=== PATIENT | male | born 1945 | race Caucasian/White ===

== ENCOUNTER 2016-12-14 11:43 | Emergency (ER) | payer MEDICARE ==
[2016-12-14] MEDS ORDERED: IPRATROPIUM-ALBUTEROL 3 ML NEB INHALATION STA (12:03)
[2016-12-14] MEDS ORDERED: SODIUM CHLORIDE 0.9% 1,000 ML IV STA (12:03)
--- NOTE | 2016-12-14 12:14 | ED ---
SOB HPI - General Chief Complaint: Shortness of Breath Stated Complaint: Difficulty Breathing Time Seen by Provider: 12/14/16 11:51 Source: patient, family, RN notes reviewed Mode of arrival: ambulatory Limitations: no limitations - History of Present Illness Initial Comments: This is a 71-year-old male with a history is negative for heart or lung disease though he is a former smoker who quit 14 years ago who presents with complains the onset shortness of breath last night. Patient states he got better he was at rest when it occurred then recurred this morning. He denies any palpitations chest pain fevers chills sweats cough or phlegm production. Also of note however last week when he was cutting grass going up he'll he became very dyspneic while doing acid cervical motion hour to recover. He had no chest pain that time either. At this time he feels slightly short of breath no chest pain no other symptoms reported at this time. MD Complaint: shortness of breath - Related Data Home Medications Medication Instructions Recorded Confirmed Aspirin 162 mg PO DAILY 12/14/16 12/14/16 Previous Rx's Medication Instructions Recorded Albuterol Inhaler [Ventolin Hfa 2 puff INHALATION Q6HR PRN #1 12/14/16 Inhaler] inhaler Allergies Allergy/AdvReac Type Severity Reaction Status Date / Time No Known Allergies Allergy Verified 12/14/16 13:07 Review of Systems ROS Statement: Those systems with pertinent positive or pertinent negative responses have been documented in the HPI. ROS Other: All systems not noted in ROS Statement are negative. Past Medical History Past Medical History: Hyperlipidemia Additional Past Medical History / Comment(s): skin cancer History of Any Multi-Drug Resistant Organisms: None Reported Additional Past Surgical History / Comment(s): skin cancer removal Past Psychological History: No Psychological Hx Reported Smoking Status: Former smoker Past Alcohol Use History: Occasional Past Drug Use History: None Reported General Exam - General Exam Comments Initial Comments: This is a well-developed well-nourished awake alert oriented times 3 male Limitations: no limitations General appearance: alert, in no apparent distress Head exam: Present: atraumatic, normocephalic, normal inspection Eye exam: Present: normal appearance, PERRL, EOMI. Absent: scleral icterus, conjunctival injection, periorbital swelling ENT exam: Present: normal exam, mucous membranes moist Neck exam: Present: normal inspection. Absent: tenderness, meningismus, lymphadenopathy Respiratory exam: Present: decreased breath sounds. Absent: respiratory distress, wheezes, rales, rhonchi, stridor Cardiovascular Exam: Present: regular rate, normal rhythm, normal heart sounds. Absent: systolic murmur, diastolic murmur, rubs, gallop, clicks GI/Abdominal exam: Present: soft, normal bowel sounds. Absent: distended, tenderness, guarding, rebound, rigid Extremities exam: Present: normal inspection, full ROM, normal capillary refill. Absent: tenderness, pedal edema, joint swelling, calf tenderness Back exam: Present: normal inspection Neurological exam: Present: alert, oriented X3, CN II-XII intact Psychiatric exam: Present: normal affect, normal mood Skin exam: Present: warm, dry, intact, normal color. Absent: rash Course Vital Signs 12/14/16 12/14/16 12/14/16 11:45 12:16 12:41 Temperature 98.4 F Pulse Rate 81 80 74 Respiratory 18 20 Rate Blood Pressure 155/79 143/78 O2 Sat by Pulse 94 L 94 L Oximetry 12/14/16 12/14/16 12:50 12:59 Temperature Pulse Rate 75 82 Respiratory 18 Rate Blood Pressure 144/82 O2 Sat by Pulse 93 L Oximetry Medical Decision Making - Medical Decision Making Patient did get improvement with the updraft. I did a long discussion with him and his regarding the findings patient currently is symptom free. Patient will be discharged with a regular as I believe the current presentation is consistent with a bronchospasm. The other symptoms however are suspicious for possible cardiac etiology. Patient apparently does have a stress test scheduled soon he will follow-up outpatient with his doctor to get this performed. The meantime he is to take an aspirin daily inhaler to be used when necessary for shortness of breath as directed and return if is any problems or any issues. Patient has are in agreement with this. Admission was offered the patient would rather go home and do this all patient possible - Lab Data Result diagrams: 12/14/16 12:10 12/14/16 12:10 Lab Results 12/14/16 12/14/16 12/14/16 Range/Units 12:10 12:10 12:10 WBC 8.9 (3.8-10.6) k/uL RBC 6.05 H (4.30-5.90) m/uL Hgb 17.5 (13.0-17.5) gm/dL Hct 50.6 (39.0-53.0) % MCV 83.7 (80.0-100.0) fL MCH 29.0 (25.0-35.0) pg MCHC 34.7 (31.0-37.0) g/dL RDW 13.1 (11.5-15.5) % Plt Count 360 (150-450) k/uL Neutrophils % 67 % Lymphocytes % 22 % Monocytes % 5 % Eosinophils % 2 % Basophils % 1 % Neutrophils # 6.0 (1.3-7.7) k/uL Lymphocytes # 2.0 (1.0-4.8) k/uL Monocytes # 0.5 (0-1.0) k/uL Eosinophils # 0.2 (0-0.7) k/uL Basophils # 0.0 (0-0.2) k/uL PT (9.0-12.0) sec INR (<1.2) APTT (22.0-30.0) sec D-Dimer (<0.60) mg/L FEU Sodium 140 (137-145) mmol/L Potassium 4.3 (3.5-5.1) mmol/L Chloride 106 (98-107) mmol/L Carbon Dioxide 23 (22-30) mmol/L Anion Gap 11 mmol/L BUN 12 (9-20) mg/dL Creatinine 0.67 (0.66-1.25) mg/dL Est GFR (MDRD) Af Amer >60 (>60 ml/min/1.73 sqM) Est GFR (MDRD) Non-Af >60 (>60 ml/min/1.73 sqM) Glucose 92 (74-99) mg/dL Calcium 9.6 (8.4-10.2) mg/dL Magnesium 2.1 (1.6-2.3) mg/dL Total Bilirubin 0.9 (0.2-1.3) mg/dL AST 20 (17-59) U/L ALT 31 (21-72) U/L Alkaline Phosphatase 75 (38-126) U/L Total Creatine Kinase 59 (55-170) U/L CK-MB (CK-2) 1.0 (0.0-2.4) ng/mL CK-MB (CK-2) Rel Index 1.7 Troponin I <0.012 (0.000-0.034) ng/mL NT-Pro-B Natriuret Pep pg/mL Total Protein 7.1 (6.3-8.2) g/dL Albumin 4.4 (3.5-5.0) g/dL 12/14/16 12/14/16 Range/Units 12:10 12:10 WBC (3.8-10.6) k/uL RBC (4.30-5.90) m/uL Hgb (13.0-17.5) gm/dL Hct (39.0-53.0) % MCV (80.0-100.0) fL MCH (25.0-35.0) pg MCHC (31.0-37.0) g/dL RDW (11.5-15.5) % Plt Count (150-450) k/uL Neutrophils % % Lymphocytes % % Monocytes % % Eosinophils % % Basophils % % Neutrophils # (1.3-7.7) k/uL Lymphocytes # (1.0-4.8) k/uL Monocytes # (0-1.0) k/uL Eosinophils # (0-0.7) k/uL Basophils # (0-0.2) k/uL PT 10.9 (9.0-12.0) sec INR 1.1 (<1.2) APTT 26.8 (22.0-30.0) sec D-Dimer 0.33 (<0.60) mg/L FEU Sodium (137-145) mmol/L Potassium (3.5-5.1) mmol/L Chloride (98-107) mmol/L Carbon Dioxide (22-30) mmol/L Anion Gap mmol/L BUN (9-20) mg/dL Creatinine (0.66-1.25) mg/dL Est GFR (MDRD) Af Amer (>60 ml/min/1.73 sqM) Est GFR (MDRD) Non-Af (>60 ml/min/1.73 sqM) Glucose (74-99) mg/dL Calcium (8.4-10.2) mg/dL Magnesium (1.6-2.3) mg/dL Total Bilirubin (0.2-1.3) mg/dL AST (17-59) U/L ALT (21-72) U/L Alkaline Phosphatase (38-126) U/L Total Creatine Kinase (55-170) U/L CK-MB (CK-2) (0.0-2.4) ng/mL CK-MB (CK-2) Rel Index Troponin I (0.000-0.034) ng/mL NT-Pro-B Natriuret Pep 70 pg/mL Total Protein (6.3-8.2) g/dL Albumin (3.5-5.0) g/dL - EKG Data -: EKG Interpreted by Mi EKG shows normal: sinus rhythm, axis, intervals, QRS complexes, ST-T waves ( Sinus rhythm with rate is 72. Interval 146 QRS duration of 90 QT/QTC of 358/ [address]-T wave changes.) - Radiology Data Radiology results: report reviewed (I did review the imaging no acute findings. Chronic changes only), image reviewed Disposition Clinical Impression: Acute bronchospasm Disposition: HOME SELF-CARE Condition: Good Instructions: Bronchospasm (ED) Additional Instructions: Daily aspirin 81 mg Prescriptions: Albuterol Inhaler [Ventolin Hfa Inhaler] 2 puff INHALATION Q6HR PRN #1 inhaler PRN Reason: Dyspnea Referrals: Valdemar Raymond DO [Primary Care Provider] - 1-2 days
[2016-12-14 12:22] LABS: Basophils % (A) 1 %; CH 28.7; CHCM 34.5; Eosinophils # (A) 0.2 k/uL (0-0.7); Eosinophils % (A) 2 %; HCT 50.6 % (39.0-53.0); HDW 2.56; HGB 17.5 gm/dL (13.0-17.5); Luc # (Auto) 0.24; Luc % (Auto) 3; Lymphocytes % (A) 22 %; MCHC 34.7 g/dL (31.0-37.0); MCV 83.7 fL (80.0-100.0); Mean Platelet Volume 7.4; Monocytes # (A) 0.5 k/uL (0-1.0); Monocytes % (A) 5 %; Neutrophils % (A) 67 %; RBC 6.05 m/uL (4.30-5.90); RDW 13.1 % (11.5-15.5); WBC 8.9 k/uL (3.8-10.6); WBC (Perox) 8.74
[2016-12-14 12:33] LABS: ALT 31 U/L (21-72); AST 20 U/L (17-59); Alkaline Phosphatase 75 U/L (38-126); Anion Gap 11 mmol/L; Blood Urea Nitrogen 12 mg/dL (9-20); Calcium 9.6 mg/dL (8.4-10.2); Carbon Dioxide 23 mmol/L (22-30); Chloride 106 mmol/L (98-107); Glucose 92 mg/dL (74-99); Magnesium 2.1 mg/dL (1.6-2.3); Non-African American GFR(MDRD) >60 (>60 ml/min/1.73 sqM); Potassium 4.3 mmol/L (3.5-5.1); Sodium 140 mmol/L (137-145); Total Bilirubin 0.9 mg/dL (0.2-1.3); Total Protein 7.1 g/dL (6.3-8.2)
[2016-12-14 12:35] LABS: INR 1.1 (<1.2); Partial Thromboplastin Time 26.8 sec (22.0-30.0); Prothrombin Time 10.9 sec (9.0-12.0)
--- NOTE | 2016-12-14 12:35 | XR ---
EXAMINATION TYPE: XR chest 2V DATE OF EXAM: 12/14/2016 COMPARISON: NONE HISTORY: Dyspnea for 2 weeks. TECHNIQUE: Frontal and lateral views of the chest are obtained. FINDINGS: There is chronic parenchymal change without suspicious focal air space opacity, pleural ef fusion, or pneumothorax seen. The cardiac silhouette size is within normal limits with atherosclerot ic and slightly ectatic thoracic aorta. Degenerative change bilateral glenohumeral joints is noted. IMPRESSION: Chronic parenchymal changes without acute pulmonary process.
[2016-12-14 12:43] LABS: Creatine Kinase 59 U/L (55-170)
[2016-12-14 12:56] LABS: Troponin I <0.012 ng/mL (0.000-0.034)
[2016-12-14 13:00] VITALS: RESP 18
[2016-12-14 14:29] VITALS: BP 126/75; PULSE 75; TEMP 98.9
== END 2016-12-14 14:31 | disposition home or self-care (01) ==
LOC: EC 11:43
DX: J98.01 Acute bronchospasm (principal); Z87.891 Personal history of nicotine dependence; Z79.82 Long term (current) use of aspirin; Z85.828 Personal history of other malignant neoplasm of skin; Z98.890 Other specified postprocedural states
CPT/HCPCS: 36415; 71020; 80053; 82550; 82553; 83735; 83880; 84484; 85025; 85379; 85610; 85730; 93005; 94640; 96360; 96361; 99285

== ENCOUNTER 2017-06-16 09:08 | Emergency (ER) | payer MEDICARE ==
[2017-06-16] MEDS ORDERED: RX INFO: IV CONTRAST WAS GIVEN 1 EACH MISC MISCELLANE PRN (10:06)
--- NOTE | 2017-06-16 10:31 | ED ---
General Adult HPI - General Chief complaint: Fall Stated complaint: FALL, BACK PAIN Time Seen by Provider: 06/16/17 09:38 Source: patient, family, RN notes reviewed Mode of arrival: wheelchair Limitations: no limitations - History of Present Illness Initial comments: Patient 72-year-old male who presents emergency room today with a chief complaint of a fall that occurred 4 days ago. He does not that he was walking out slipped in the garage going down the steps landing on the step and the right side of his back. He has been to bruising this area and states the pain is worse with certain movements and if he coughs or sneezes. States she's used aspirin at home for the pain with little relief. Denies any complaints or associated symptoms. Patient denies any recent fever, chills, shortness of breath, chest pain, abdominal pain, nausea or vomiting, numbness or tingling, dysuria or hematuria, constipation or diarrhea, headaches or visual changes, or any other complaints. - Related Data Home Medications Medication Instructions Recorded Confirmed Aspirin 162 mg PO DAILY PRN 12/14/16 06/16/17 Ergocalciferol (Vitamin D2) 50,000 unit PO FR 06/16/17 06/16/17 [Vitamin D2] Previous Rx's Medication Instructions Recorded Hydrocodone/Acetaminophen [[place] 1 each PO Q6HR PRN #30 tab 06/16/17 5-325] Ibuprofen [Motrin] 600 mg PO Q6HR PRN #30 day 06/16/17 Allergies Allergy/AdvReac Type Severity Reaction Status Date / Time doxycycline Allergy Dyspnea Verified 06/16/17 10:18 valacyclovir [From Valtrex] Allergy Confusion Verified 06/16/17 10:18 Review of Systems ROS Statement: Those systems with pertinent positive or pertinent negative responses have been documented in the HPI. ROS Other: All systems not noted in ROS Statement are negative. Past Medical History Past Medical History: Hyperlipidemia Additional Past Medical History / Comment(s): skin cancer History of Any Multi-Drug Resistant Organisms: None Reported Additional Past Surgical History / Comment(s): skin cancer removal Past Psychological History: No Psychological Hx Reported Smoking Status: Former smoker Past Alcohol Use History: Occasional Past Drug Use History: None Reported General Exam - General Exam Comments Initial Comments: General: The patient is awake and alert, in no distress, and does not appear acutely ill. Eye: Pupils are equal, round and reactive to light, extra-ocular movements are intact. No nystagmus. There is normal conjunctiva bilaterally. No signs of icterus. Ears, nose, mouth and throat: There are moist mucous membranes and no oral lesions. Neck: The neck is supple, there is no tenderness or JVD. Cardiovascular: There is a regular rate and rhythm. No murmur, rub or gallop is appreciated. Respiratory: Lungs are clear to auscultation, respirations are non-labored, breath sounds are equal. No wheezes, stridor, rales, or rhonchi. Gastrointestinal: Soft, non-distended, non-tender abdomen without masses or organomegaly noted. There is no rebound or guarding present. Bowel sounds are unremarkable. No bruising to the right lower back. Musculoskeletal: Patient does have bruising to the right side of the lower back. No tenderness midline over the spine. Does have some tenderness to the posterior right lower ribs. Strength 5/5. Sensation intact. Pulses equal bilaterally 2+. Neurological: A&O x 3. CN II-XII intact, There are no obvious motor or sensory deficits. Coordination appears grossly intact. Speech is normal. Skin: Skin is warm and dry and no rashes or lesions are noted. Psychiatric: Cooperative, appropriate mood & affect, normal judgment. Limitations: no limitations Course Vital Signs 06/16/17 09:11 Temperature 97.1 F L Pulse Rate 86 Respiratory 18 Rate Blood Pressure 165/90 O2 Sat by Pulse 96 Oximetry Medical Decision Making - Medical Decision Making Patient reexamined at this time shows no signs of distress resting. Positive and reviewed. His CT reviewed and does show evidence of a rib fracture posteriorly to the right 10th and 11th ribs along with right-sided transverse fracture of the lumbar spine of 1, and 2. No other abnormalities. Patient doing well at this time. Given incentive spirometer. Will be given pain medication go home with. Advised follow family doctor. Advised return to emergency room symptoms increase worsen. Patient states understanding and is in agreement. - Lab Data Result diagrams: 06/16/17 10:20 06/16/17 10:20 Lab Results 06/16/17 06/16/17 Range/Units 10:20 10:20 WBC 11.1 H (3.8-10.6) k/uL RBC 6.06 H (4.30-5.90) m/uL Hgb 17.3 (13.0-17.5) gm/dL Hct 53.1 H (39.0-53.0) % MCV 87.6 (80.0-100.0) fL MCH 28.5 (25.0-35.0) pg MCHC 32.5 (31.0-37.0) g/dL RDW 14.8 (11.5-15.5) % Plt Count 387 (150-450) k/uL Neutrophils % 83 % Lymphocytes % 11 % Monocytes % 4 % Eosinophils % 1 % Basophils % 1 % Neutrophils # 9.1 H (1.3-7.7) k/uL Lymphocytes # 1.2 (1.0-4.8) k/uL Monocytes # 0.4 (0-1.0) k/uL Eosinophils # 0.1 (0-0.7) k/uL Basophils # 0.1 (0-0.2) k/uL Sodium 141 (137-145) mmol/L Potassium 5.0 (3.5-5.1) mmol/L Chloride 104 (98-107) mmol/L Carbon Dioxide 26 (22-30) mmol/L Anion Gap 11 mmol/L BUN 15 (9-20) mg/dL Creatinine 0.65 L (0.66-1.25) mg/dL Est GFR (MDRD) Af Amer >60 (>60 ml/min/1.73 sqM) Est GFR (MDRD) Non-Af >60 (>60 ml/min/1.73 sqM) Glucose 104 H (74-99) mg/dL Calcium 9.9 (8.4-10.2) mg/dL Total Bilirubin 0.8 (0.2-1.3) mg/dL AST 24 (17-59) U/L ALT 28 (21-72) U/L Alkaline Phosphatase 76 (38-126) U/L Total Protein 7.2 (6.3-8.2) g/dL Albumin 4.3 (3.5-5.0) g/dL Disposition Clinical Impression: Multiple rib fractures, Lumbar transverse process fracture Disposition: HOME SELF-CARE Condition: Good Instructions: Rib Fracture (ED) Additional Instructions: Please use medication as discussed. Please follow-up with family doctor in the next 2 days Please return to emergency room if the symptoms increase or worsen or for any other concerns. Prescriptions: Hydrocodone/Acetaminophen [[place] 5-325] 1 each PO Q6HR PRN #30 tab PRN Reason: Pain Ibuprofen [Motrin] 600 mg PO Q6HR PRN #30 day PRN Reason: Pain Referrals: Valdemar Raymond DO [Primary Care Provider] - 1-2 days Time of Disposition: 12:38
[2017-06-16 10:45] LABS: ALT 28 U/L (21-72); AST 24 U/L (17-59); Albumin 4.3 g/dL (3.5-5.0); Alkaline Phosphatase 76 U/L (38-126); Anion Gap 11 mmol/L; Basophils # (A) 0.1 k/uL (0-0.2); Basophils % (A) 1 %; Blood Urea Nitrogen 15 mg/dL (9-20); Calcium 9.9 mg/dL (8.4-10.2); Carbon Dioxide 26 mmol/L (22-30); Chloride 104 mmol/L (98-107); Eosinophils # (A) 0.1 k/uL (0-0.7); Eosinophils % (A) 1 %; Glucose 104 mg/dL (74-99); HCT 53.1 % (39.0-53.0); HGB 17.3 gm/dL (13.0-17.5); Lymphocytes # (A) 1.2 k/uL (1.0-4.8); Lymphocytes % (A) 11 %; MCH 28.5 pg (25.0-35.0); MCHC 32.5 g/dL (31.0-37.0); MCV 87.6 fL (80.0-100.0); Mean Platelet Volume 7.8; Monocytes # (A) 0.4 k/uL (0-1.0); Monocytes % (A) 4 %; Neutrophils # (A) 9.1 k/uL (1.3-7.7); Neutrophils % (A) 83 %; Platelet Count 387 k/uL (150-450); RBC 6.06 m/uL (4.30-5.90); RDW 14.8 % (11.5-15.5); Sodium 141 mmol/L (137-145); Total Bilirubin 0.8 mg/dL (0.2-1.3); Total Protein 7.2 g/dL (6.3-8.2); WBC 11.1 k/uL (3.8-10.6)
[2017-06-16] MEDS ORDERED: SODIUM CHLORIDE 0.9% 1,000 ML IV STA (11:15)
--- NOTE | 2017-06-16 11:58 | CT ---
EXAMINATION TYPE: CT abdomen pelvis w con DATE OF EXAM: 06/16/2017 COMPARISON: Chest x-ray 12/14/2016 HISTORY: Patient complains of increasing RUQ pain post fall [address] DLP: 614.6 mGycm CONTRAST: CT scan of the abdomen and pelvis is performed without Oral Contrast and with IV Contrast, patient in jected with 100 mL of Omnipaque 300. FINDINGS: LUNG BASES-: No visible nodule. No infiltrate. Mild basilar fibrotic change. LIVER/GB: No calcified gallstones. No space occupying hepatic lesion. Biliary tree is of normal ca liber. No evidence for hepatic laceration. PANCREAS: No inflammation. No distinct mass. SPLEEN: No splenic enlargement. No lesion seen. ADRENALS: No nodule. No thickening. KIDNEYS/BLADDER: No hydronephrosis. No nephrolithiasis. No disctinct renal mass. Urinary bladder g rossly unremarkable. No renal laceration seen. BOWEL: Normal appendix. Normal bowel caliber. No inflammation. Small hiatal hernia noted. GENITAL ORGANS: No gross abnormality. LYMPH NODES: No greater than 1cm abdominal or pelvic lymph nodes are appreciated. AORTA: No significant abnormality. OSSEOUS STRUCTURES: Fractures of posterior right ribs 10 and 11. Fracture of the right L1 and L3 dawson sverse process. No additional acute fractures are seen with certainty at this time. Loss of height in volving T12 is likely chronic in nature as appeared to have been present on prior lateral chest radio graph. OTHER: No significant additional abnormality is seen. IMPRESSION: 1. No CT evidence to suggest traumatic solid or hollow visceral injury. No evidence for pneumoperiton eum. 2. Posterior right rib fractures of the ribs 10 and 11. There is also fracture of right transverse pr ocess of L1 and L3
[2017-06-16] MEDS ORDERED: HYDROcodone/APAP 5-325MG 1 EACH TAB PO STA (12:37)
[2017-06-16 12:48] VITALS: BP 144/80; PULSE 85; RESP 16; TEMP 98.4
== END 2017-06-16 12:53 | disposition home or self-care (01) ==
LOC: EC 09:08
DX: S22.41XA Multiple fractures of ribs, right side, initial encounter for closed fracture (principal); S32.019A Unspecified fracture of first lumbar vertebra, initial encounter for closed fracture; S32.029A Unspecified fracture of second lumbar vertebra, initial encounter for closed fracture; Z85.828 Personal history of other malignant neoplasm of skin; Z87.891 Personal history of nicotine dependence; Z88.1 Allergy status to other antibiotic agents; Z79.899 Other long term (current) drug therapy; W10.9XXA Fall (on) (from) unspecified stairs and steps, initial encounter; Y93.01 Activity, walking, marching and hiking; Y92.59 Other trade areas as the place of occurrence of the external cause
CPT/HCPCS: 36415; 80053; 85025; 74177; 99284; 96360; Q9967

== ENCOUNTER → 2018-03-26 | Outpatient (CLI) | payer OTHER ==
[2018-03-26 16:15] LABS: Blood Urea Nitrogen 18 mg/dL (9-20)
--- NOTE | 2018-03-27 12:36 | CT ---
EXAMINATION TYPE: CT chest w con DATE OF EXAM: 03/26/2018 COMPARISON: CT abdomen pelvis 06/16/2017, chest x-ray 12/14/2016 HISTORY: LUNG NODULE FOUND ON XRAY CT DLP: 346.5 mGycm, Automated exposure control for dose reduction was used. CONTRAST: Performed injected with 100 mL of Isovue 300. TECHNIQUE: Axial images were obtained at 5 mm thick sections. Reconstructed images are reviewed on [employer] computer in the coronal plane. FINDINGS: Portion of the thyroid visualized is normal. No suspicious lung nodules or focal infiltrates are present. Emphysematous changes are present. Some mild compressive atelectasis of the right lung may be present. Some subtle streak opacity or pneumoni tis changes in the right middle lobe. There are couple of calcified densities within the posterior la teral right lung. There is a 0.9 cm area of peripheral increased density in the right lower lobe. Series 4 image 39. Fo llow-up is recommended. No enlarged mediastinal or hilar adenopathy is evident. Shotty lymphadenopathy is present. The asce nding aorta diameter at the level of the main pulmonary artery is 3.8 cm. The main pulmonary artery diameter at the bifurcation is 2.2 cm. Small hiatal hernia is present. Limited CT sections are obtained through the upper abdomen. Abdomen is essentially unremarkable. IMPRESSIONS: 1. Emphysematous changes. 2. Mild pneumonitis or faint opacities within the right middle and lower lobes discussed above. Nodul ar density is not excluded in the periphery right lower lobe discussed above. Follow-up CT chest in 6 months is recommended. 3. Small hiatal hernia
== END | disposition home or self-care (01) ==
LOC: RADCTMAIN 15:22
PROVIDERS: ATTEND Nurse Practitioner Acute Care
DX: J43.9 Emphysema, unspecified (principal); R91.1 Solitary pulmonary nodule
CPT/HCPCS: 82565; 84520; 71260; 36415; Q9967

== ENCOUNTER → 2018-12-11 | Outpatient (CLI) | payer OTHER ==
[2018-12-11 14:47] LABS: African American GFR (CKD) >90 (>60 ml/min/1.73 sqM); Blood Urea Nitrogen 17 mg/dL (9-20)
--- NOTE | 2018-12-11 15:16 | CT ---
EXAMINATION TYPE: CT chest w con DATE OF EXAM: 12/11/2018 COMPARISON: Chest CT March 26, 2018 HISTORY: Solitary Pulmonary Nodule CT DLP: 564 mGycm. Automated Exposure Control for Dose Reduction was Utilized. TECHNIQUE: CT scan of the thorax is performed following with IV Contrast, patient injected with 100m l mL of Isovue 300. FINDINGS: LUNGS: Moderate underlying emphysematous change is redemonstrated. There are scattered parenchymal fi brosis and peripheral reticulation particularly in the right lower lobe with stable 7 mm subpleural s carlike opacity lateral right lower lobectomies 39 favoring postinflammatory scar. No new greater trini n 5 mm parenchymal nodules or masses. Dependent atelectasis bilateral lower lobes. No pleural effusio n or pneumothorax. MEDIASTINUM: There are no greater than 1 cm hilar or mediastinal lymph nodes. No cardiomegaly or pe ricardial effusion is seen. Ascending aorta measures 3.6 cm in diameter at bifurcation axial image 28 . OTHER: Stable small hiatal hernia. Slight scoliotic curvature. Prominent Schmorl node superior T12 en dplate. IMPRESSION: Emphysematous changes with chronic fibrosis. No new or enlarging nodularity.
== END | disposition home or self-care (01) ==
LOC: RADCTMAIN 14:15
DX: J43.9 Emphysema, unspecified (principal); J84.10 Pulmonary fibrosis, unspecified; Z88.1 Allergy status to other antibiotic agents; Z88.8 Allergy status to other drugs, medicaments and biological substances
CPT/HCPCS: 36415; 71260; 82565; 84520

== ENCOUNTER → 2020-05-01 | Outpatient (CLI) | payer MEDICARE ==
--- NOTE | 2020-05-01 11:10 | XR ---
EXAMINATION TYPE: XR foot complete RT DATE OF EXAM: 05/01/2020 COMPARISON: NONE HISTORY: Pain fifth metatarsal TECHNIQUE: Three views are submitted. FINDINGS: The osseous structures are intact. There is no acute fracture or dislocation. Arthropathy of all D IP joints and PIP joints. Arthropathy first MTP joint. IMPRESSION: 1. No acute fracture or dislocation. If symptoms persist, follow-up exam in 7 to 10 days could be ob tained. 2. Arthropathy.
== END | disposition home or self-care (01) ==
LOC: RADXRMAIN 10:40
PROVIDERS: ATTEND Podiatrist Foot Surgery
DX: M12.9 Arthropathy, unspecified (principal)

== ENCOUNTER 2020-06-13 07:38 | Day surgery (SDC) | payer MEDICARE ==
[2020-06-08 09:10] VITALS: BMI 25.8
[~2020-06-13 07:38] MED LIST: LACTATED RINGERS 1,000 ML IV SCH; LIDOCAINE 1% (10MG/ML) FOR IV START INTRADERMA PRN
[2020-06-13 08:17] VITALS: TEMP 97.7
[2020-06-13] MEDS ORDERED: PROPOFOL 10 MG/ML 20 ML VIAL IV ONE (08:52)
--- NOTE | 2020-06-13 09:30 | P.PCN ---
Date of Procedure: 06/13/20 Description of Procedure: BRIEF HISTORY: Patient is a 75-year-old male presenting for outpatient colonoscopy for history of colon polyps. He reports last colonoscopy 5 years ago with polypectomy. This report a family history of colon cancer in his half-brother. Denies any change in bowel movements or blood per rectum. PROCEDURE PERFORMED: Colonoscopy with polypectomy. PREOPERATIVE DIAGNOSIS: History of colon polyps, family history of colon cancer in the patient's half-brother, last colonoscopy 5 years. ESTIMATED BLOOD LOSS: Minimal. IV sedation per Anesthesia. PROCEDURE: After informed consent was obtained, the patient, was brought into the endoscopy unit. IV sedation was administered by Anesthesia under continuous monitoring. Digital rectal examination was normal. Initially the Olympus CF-190 flexible video colonoscope was then inserted in the rectum, gradually advanced into the cecum without any difficulty. Careful examination was performed as the scope was gradually being withdrawn. Ileocecal valve and the appendiceal orifice were visualized and appeared normal. Prep was excellent. Mucosa of the cecum, ascending colon, transverse colon, descending colon, sigmoid colon, and rectum appeared normal. 2 diminutive polyps measuring 1-2 mm in size removed from cecum and ascending colon with cold forcep polypectomy. Flat colon polyps measuring 6 mm in the ascending colon and 5 mm at the hepatic flexure removed with cold snare polypectomy. Multiple small mouth diverticula noted in the left colon. Retroflexion was performed in the rectum and no lesions were seen, low- grade internal hemorrhoids seen. The patient tolerated the procedure well. IMPRESSION: 2 medium sized polyp removed with cold snare polypectomy from the ascending colon and hepatic flexure. 2 diminutive polyps removed with cold forcep polypectomy from the cecum and ascending colon. Moderate left colonic diverticulosis. RECOMMENDATIONS: Findings of this examination were discussed with the patient and his family. Okay to resume diet, recommend high-fiber. Okay to resume medications. Await pathology from polypectomies. Recommend repeat colonoscopy in 5 years for history of colon polyps pending pathology from polypectomies, if patient is medically stable at that time.
[2020-06-13 09:35] VITALS: RESP 16
[2020-06-13 09:49] VITALS: BP 120/72; PULSE 89
== END 2020-06-13 10:12 | disposition home or self-care (01) ==
LOC: ORWHC2ENDO 07:38
PROVIDERS: ATTEND Internal Medicine
DX: Z12.11 Encounter for screening for malignant neoplasm of colon (principal); D12.2 Benign neoplasm of ascending colon; D12.0 Benign neoplasm of cecum; D12.3 Benign neoplasm of transverse colon; K57.30 Diverticulosis of large intestine without perforation or abscess without bleeding; E78.5 Hyperlipidemia, unspecified; Z86.010 Personal history of colon polyps; Z80.0 Family history of malignant neoplasm of digestive organs; Z98.890 Other specified postprocedural states; Z87.891 Personal history of nicotine dependence; Z88.1 Allergy status to other antibiotic agents; Z88.8 Allergy status to other drugs, medicaments and biological substances
CPT/HCPCS: 88305; 45380; 45385; J2704

== ENCOUNTER 2021-04-23 06:09 | Day surgery (SDC) | payer BC, MEDICARE, OTHER ==
[2021-04-19 14:39] VITALS: BMI 26.5
[2021-04-23] MEDS ORDERED: LACTATED RINGERS 1,000 ML IV ONE (06:43)
[2021-04-23 06:44] VITALS: RESP 16; TEMP 96.9
[2021-04-23] MEDS ORDERED: PROPOFOL 10 MG/ML 20 ML VIAL IV ONE (07:14)
[2021-04-23 07:50] LABS: Basophils # (A) 0.1 k/uL (0-0.2); Basophils % (A) 1 %; Eosinophils # (A) 0.3 k/uL (0-0.7); Eosinophils % (A) 2 %; HCT 47.5 % (39.0-53.0); HGB 16.3 gm/dL (13.0-17.5); Lymphocytes # (A) 2.1 k/uL (1.0-4.8); Lymphocytes % (A) 19 %; MCH 28.6 pg (25.0-35.0); MCHC 34.2 g/dL (31.0-37.0); MCV 83.5 fL (80.0-100.0); Mean Platelet Volume 7.7; Monocytes # (A) 0.7 k/uL (0-1.0); Monocytes % (A) 6 %; Neutrophils # (A) 7.9 k/uL (1.3-7.7); Neutrophils % (A) 70 %; Platelet Count 533 k/uL (150-450); RBC 5.69 m/uL (4.30-5.90); RDW 14.2 % (11.5-15.5); Reticulocyte % 2.5 % (0.5-2.0); WBC 11.3 k/uL (3.8-10.6)
[2021-04-23 07:55] VITALS: BP 131/75; PULSE 79
--- NOTE | 2021-04-23 08:31 | PCN ---
PROCEDURE NOTE DATE OF SERVICE: 04/23/2021 PROCEDURE: Bone marrow aspirate and biopsy. INDICATION: Polycythemia vera. After obtaining consent from the patient, the procedure was performed in the endoscopy suite under general anesthesia performed by the anesthesia team. PROCEDURE DESCRIPTION: The patient was put on the left lateral decubitus position. The right posterior superior iliac crest was localized. Skin was prepped with ChloraPrep. All sterile procedures were followed. Two mL of 2% lidocaine was used for local anesthetic. Monoject needle was inserted and 15 mL of aspirate and 2 cm core biopsy was obtained without any difficulties. Pressure was applied afterwards. There was negligible blood loss. The patient tolerated the procedure very well without any immediate complications. MMODL / IJN: [id number] /
== END 2021-04-23 08:22 | disposition home or self-care (01) ==
LOC: OR 06:09
PROVIDERS: ATTEND Internal Medicine Hematology & Oncology
DX: C96.9 Malignant neoplasm of lymphoid, hematopoietic and related tissue, unspecified (principal); D47.3 Essential (hemorrhagic) thrombocythemia; D75.1 Secondary polycythemia; E78.5 Hyperlipidemia, unspecified; Z88.8 Allergy status to other drugs, medicaments and biological substances; Z79.82 Long term (current) use of aspirin; Z80.0 Family history of malignant neoplasm of digestive organs; Z80.8 Family history of malignant neoplasm of other organs or systems; Z87.891 Personal history of nicotine dependence
CPT/HCPCS: 85025; 85045; 38222; J2704

== ENCOUNTER 2024-07-19 12:20 | Emergency (ER) | payer MEDICARE, OTHER ==
[2024-07-19 12:39] VITALS: RESP 20
--- NOTE | 2024-07-19 12:59 | ED ---
General Adult HPI - General Chief complaint: Shortness of Breath Stated complaint: Flu symptoms,headache Time Seen by Provider: 07/19/24 12:59 Source: patient Mode of arrival: ambulatory Limitations: no limitations - History of Present Illness Initial comments: 79-year-old male presenting chief complaint of shortness of breath. Patient is also complaining of headache. He was diagnosed with the flu 2 weeks ago and states he is having these persistent symptoms. States that he feels like he needs to cough something up and he feels something in his chest but his cough is mostly dry. No known fever. No chest pain. No nausea vomiting or abdominal pain. No lower extremity swelling. No dizziness or weakness. - Related Data Home Medications Medication Instructions Recorded Confirmed Aspirin 325 mg PO DAILY 04/19/21 04/19/21 Cholecalciferol [Vitamin D3 (10 10 mcg PO DAILY 04/19/21 04/19/21 Mcg = 400 Iu)] Previous Rx's Medication Instructions Recorded Albuterol Sulfate [Albuterol 1 puff PO Q4-6H PRN #8.5 gm 07/19/24 Sulfate Hfa] Amoxic-Pot Clav 875-125Mg 1 tab PO Q12HR 7 Days #14 tab 07/19/24 [Augmentin 875-125] Azithromycin [Zithromax] 250 mg PO DAILY 4 Days #4 tab 07/19/24 Allergies Allergy/AdvReac Type Severity Reaction Status Date / Time doxycycline Allergy Dyspnea Verified 07/19/24 12:39 valacyclovir [From Valtrex] Allergy Confusion Verified 07/19/24 12:39 Review of Systems ROS Statement: Those systems with pertinent positive or pertinent negative responses have been documented in the HPI. ROS Other: All systems not noted in ROS Statement are negative. Past Medical History Past Medical History: Cancer, Hyperlipidemia Additional Past Medical History / Comment(s): skin cancer, states too many red blood cells. History of Any Multi-Drug Resistant Organisms: None Reported Past Surgical History: No Surgical Hx Reported Additional Past Surgical History / Comment(s): COLONOSCOPY Past Anesthesia/Blood Transfusion Reactions: No Reported Reaction Past Psychological History: No Psychological Hx Reported Smoking Status: Former smoker Past Alcohol Use History: Occasional Past Drug Use History: None Reported - Past Family History Mother Family Medical History: Cancer Additional Family Medical History / Comment(s): BRAIN CANCER Brother(s) Family Medical History: Cancer Additional Family Medical History / Comment(s): COLON CANCER Sister(s) Family Medical History: Cancer Additional Family Medical History / Comment(s): LIVER CANCER General Exam - General Exam Comments Initial Comments: Visual Physical Exam Vital signs reviewed General: Well-appearing, nontoxic, no acute distress. Head: Normocephalic, atraumatic Eyes: PERRLA, EOMI ENT: Airway patent Chest: Nonlabored breathing Skin: No visual rash, normal skin tone Neuro: Alert and oriented 3 Musculoskeletal: No gross abnormalities Limitations: no limitations General appearance: alert, in no apparent distress Head exam: Present: atraumatic, normocephalic, normal inspection Eye exam: Present: normal appearance, EOMI Neck exam: Present: normal inspection. Absent: meningismus Respiratory exam: Present: normal lung sounds bilaterally. Absent: respiratory distress, wheezes, rales, rhonchi, stridor Cardiovascular Exam: Present: regular rate, normal rhythm, normal heart sounds. Absent: systolic murmur, diastolic murmur, rubs, gallop, clicks Neurological exam: Present: alert, oriented X3 Psychiatric exam: Present: normal affect, normal mood Skin exam: Present: warm, dry, normal color Course Vital Signs 07/19/24 07/19/24 07/19/24 12:36 16:09 18:39 Temperature 97.5 F L 98.4 F 98.1 F Pulse Rate 106 H 68 90 Respiratory 20 20 20 Rate Blood Pressure 153/88 130/80 114/73 O2 Sat by Pulse 94 L 95 95 Oximetry Medical Decision Making - Medical Decision Making I performed the quick note portion of this visit, electronically signed Pedrito Hughes PA-C Was pt. sent in by a medical professional or institution (RAMA Blackman, BUSINESS ADVISOR, urgent care, hospital, or usp...) When possible be specific @ -No Did you speak to anyone other than the patient for history (EMS, parent, family, police, friend...)? What history was obtained from this source @ -No Did you review nursing and triage notes (agree or disagree)? Why? @ -I reviewed and agree with nursing and triage notes Were old charts reviewed (outside hosp., previous admission, EMS record, old EKG, old radiological studies, urgent care reports/EKG's, usp records)? Report findings @ -No old charts were reviewed Differential Diagnosis (chest pain, altered mental status, abdominal pain women, abdominal pain men, vaginal bleeding, weakness, fever, dyspnea, syncope, headache, dizziness, GI bleed, back pain, seizure, CVA, palpatations, mental health, musculoskeletal)? @ -MDM Differential Dyspnea: Coronary syndrome, arrhythmia, tamponade, asthma, COPD, pulmonary embolism, pneu monia, pneumothorax, pulmonary effusion, anaphylaxis, diabetic ketoacidosis, flailed chest, pulmonary contusion, diaphragmatic rupture, anemia, neuromuscular this is not meant to be an all-inclusive list. EKG interpreted by me (3pts min.). @ -EKG shows sinus rhythm ventricular rate 91. NC interval 141. QRS 116. QT 350. QTc 398. X-rays interpreted by me (1pt min.). @ -Chest x-ray shows right lower lobe infiltrate. Correlate for pneumonia. CT interpreted by me (1pt min.). @ -None done U/S interpreted by me (1pt. min.). @ -None done What testing was considered but not performed or refused? (CT, X-rays, U/S, labs)? Why? @ -None What meds were considered but not given or refused? Why? @ -None Did you discuss the management of the patient with other professionals (professionals i.e. , PA, BUSINESS ADVISOR, lab, RT, psych nurse, social worker assistant, development analyst, teacher, police officer crime prevention, case managers)? Give summary @ -No Was smoking cessation discussed for >3mins.? @ -No Was critical care preformed (if so, how long)? @ -No Were there social determinants of health that impacted care today? How? (Homelessness, low income, unemployed, alcoholism, drug addiction, transportation, low edu. Level, literacy, decrease access to med. care, fpc, rehab)? @ -No Was there de-escalation of care discussed even if they declined (Discuss DNR or withdrawal of care, Hospice)? DNR status @ -No What co-morbidities impacted this encounter? (DM, HTN, Smoking, COPD, CAD, Cancer, CVA, ARF, Chemo, Hep., AIDS, mental health diagnosis, sleep apnea, morbid obesity)? @ -None Was patient admitted / discharged? Hospital course, mention meds given and route, prescriptions, significant lab abnormalities, going to OR and other pertinent info. @ -79-year-old male presenting chief complaint of shortness of breath. History and physical examination are conducted. Lab work shows no leukocytosis or anemia. Negative troponin. BNP is 55. He is negative for influenza, RSV, COVID. Chest x-ray is positive for right lower lobe pneumonia. Patient is treated with a DuoNeb as well as IV azithromycin and ceftriaxone. Vital signs are stable. Patient wishes to be discharged home. States that he is feeling well. I explained to the patient that we can admit him for treatment of the pneumonia, he would prefer to go home. He is prescribed the remainder of his course of azithromycin and Augmentin for home as well as provided with an albuterol inhaler. Provided with strict return parameters. Follow-up with PCP. Report back to ER with any new or worsening symptoms. Discussed return parameters and answered all questions. Patient conveyed verbal understanding and agreed to the plan. I discussed this case in detail with my attending Dr. Collazo Undiagnosed new problem with uncertain prognosis? @ -No Drug Therapy requiring intensive monitoring for toxicity (Heparin, Nitro, Insulin, Cardizem)? @ -No Were any procedures done? @ -No Diagnosis/symptom? @ -Pneumonia Acute, or Chronic, or Acute on Chronic? @ -Acute Uncomplicated (without systemic symptoms) or Complicated (systemic symptoms)? @ -Uncomplicated Side effects of treatment? @ -No Exacerbation, Progression, or Severe Exacerbation? @ -No Poses a threat to life or bodily function? How? (Chest pain, [place], [place], pneumonia, PE, COPD, DKA, ARF, appy, cholecystitis, CVA, Diverticulitis, Homicidal, Suicidal, threat to staff... and all critical care pts) @ -Potential with any infection - Lab Data Result diagrams: 07/19/24 13:27 07/19/24 14:19 Lab Results 07/19/24 07/19/24 07/19/24 Range/Units 13:27 13: 13: WBC 4.6 (3.8-10.6) k/uL RBC 3.77 L (4.30-5.90) m/uL Hgb 13.3 (13.0-17.5) gm/dL Hct 40.2 (39.0-53.0) % MCV 106.7 H (80.0-100.0) fL MCH 35.2 H (25.0-35.0) pg MCHC 33.0 (31.0-37.0) g/dL RDW 13.9 (11.5-15.5) % Plt Count 630 H (150-450) k/uL MPV 7.6 Neutrophils % 59 % Lymphocytes % 29 % Monocytes % 7 % Eosinophils % 1 % Basophils % 0 % Neutrophils # 2.7 (1.3-7.7) k/uL Lymphocytes # 1.3 (1.0-4.8) k/uL Monocytes # 0.3 (0-1.0) k/uL Eosinophils # 0.1 (0-0.7) k/uL Basophils # 0.0 (0-0.2) k/uL Macrocytosis Moderate PT 11.5 (10.0-12.5) sec INR 1.0 (<1.2) APTT 26.9 (22.0-30.0) sec Sodium (137-145) mmol/L Potassium (3.5-5.1) mmol/L Chloride (98-107) mmol/L Carbon Dioxide (22-30) mmol/L Anion Gap mmol/L BUN (9-20) mg/dL Creatinine (0.66-1.25) mg/dL Est GFR (CKD-EPI)AfAm (>60 ml/min/1.73 sqM) Est GFR (CKD-EPI)NonAf (>60 ml/min/1.73 sqM) Glucose (74-99) mg/dL Calcium (8.4-10.2) mg/dL Magnesium (1.6-2.3) mg/dL Total Bilirubin (0.2-1.3) mg/dL AST (17-59) U/L ALT (4-49) U/L Alkaline Phosphatase (38-126) U/L Troponin I (0.000-0.034) ng/mL NT-Pro-B Natriuret Pep pg/mL Total Protein (6.3-8.2) g/dL Albumin (3.5-5.0) g/dL Influenza Type A (PCR) Not Detected (Not Detectd) Influenza Type B (PCR) Not Detected (Not Detectd) RSV (PCR) Not Detected (Not Detectd) SARS-CoV-2 (PCR) Not Detected (Not Detectd) 07/19/24 07/19/24 07/19/24 Range/Units 14:19 14:19 14:19 WBC (3.8-10.6) k/uL RBC (4.30-5.90) m/uL Hgb (13.0-17.5) gm/dL Hct (39.0-53.0) % MCV (80.0-100.0) fL MCH (25.0-35.0) pg MCHC (31.0-37.0) g/dL RDW (11.5-15.5) % Plt Count (150-450) k/uL MPV Neutrophils % % Lymphocytes % % Monocytes % % Eosinophils % % Basophils % % Neutrophils # (1.3-7.7) k/uL Lymphocytes # (1.0-4.8) k/uL Monocytes # (0-1.0) k/uL Eosinophils # (0-0.7) k/uL Basophils # (0-0.2) k/uL Macrocytosis PT (10.0-12.5) sec INR (<1.2) APTT (22.0-30.0) sec Sodium 138 (137-145) mmol/L Potassium 4.8 (3.5-5.1) mmol/L Chloride 103 (98-107) mmol/L Carbon Dioxide 26 (22-30) mmol/L Anion Gap 9 mmol/L BUN 16 (9-20) mg/dL Creatinine 0.74 (0.66-1.25) mg/dL Est GFR (CKD-EPI)AfAm >90 (>60 ml/min/1.73 sqM) Est GFR (CKD-EPI)NonAf 87 (>60 ml/min/1.73 sqM) Glucose 108 H (74-99) mg/dL Calcium 9.4 (8.4-10.2) mg/dL Magnesium 2.4 H (1.6-2.3) mg/dL Total Bilirubin 1.0 (0.2-1.3) mg/dL AST 19 (17-59) U/L ALT 31 (4-49) U/L Alkaline Phosphatase 74 (38-126) U/L Troponin I <0.012 (0.000-0.034) ng/mL NT-Pro-B Natriuret Pep 55 pg/mL Total Protein 6.9 (6.3-8.2) g/dL Albumin 3.6 (3.5-5.0) g/dL Influenza Type A (PCR) (Not Detectd) Influenza Type B (PCR) (Not Detectd) RSV (PCR) (Not Detectd) SARS-CoV-2 (PCR) (Not Detectd) Disposition Clinical Impression: Pneumonia Disposition: HOME SELF-CARE Condition: Good Instructions (If sedation given, give patient instructions): Community Acquired Pneumonia (ED) Additional Instructions: Follow-up with PCP. Report back to ER with any new or worsening symptoms Prescriptions: Albuterol Sulfate [Albuterol Sulfate Hfa] 1 puff PO Q4-6H PRN #8.5 gm PRN Reason: Shortness Of Breath Amoxic-Pot Clav 875-125Mg [Augmentin 875-125] 1 tab PO Q12HR 7 Days #14 tab Azithromycin [Zithromax] 250 mg PO DAILY 4 Days #4 tab Is patient prescribed a controlled substance at d/c from ED?: No Referrals: Akshat Denson DO [Primary Care Provider] - 1-2 days Time of Disposition: 16:31
--- NOTE | 2024-07-19 13:42 | XR ---
EXAMINATION TYPE: XR chest 2V DATE OF EXAM: 07/19/2024 1:38 PM COMPARISON: 12/14/2016 CLINICAL INDICATION: Male, 79 years old with history of LES, TECHNIQUE: XR chest 2V view(s) obtained. FINDINGS: The heart size is normal. The pulmonary vasculature is normal. Right lower lobe infiltrate is present. Correlate for pneumonia. Follow-up is recommended. IMPRESSION: 1. Right lower lobe infiltrate. Correlate for pneumonia [facility], , 07/19/2024 1:40 PM
[2024-07-19 13:44] LABS: Basophils % (A) 0 %; Eosinophils # (A) 0.1 k/uL (0-0.7); Eosinophils % (A) 1 %; HCT 40.2 % (39.0-53.0); HGB 13.3 gm/dL (13.0-17.5); Lymphocytes # (A) 1.3 k/uL (1.0-4.8); Lymphocytes % (A) 29 %; MCH 35.2 pg (25.0-35.0); MCV 106.7 fL (80.0-100.0); Macrocytosis Moderate; Mean Platelet Volume 7.6; Monocytes # (A) 0.3 k/uL (0-1.0); Monocytes % (A) 7 %; Neutrophils # (A) 2.7 k/uL (1.3-7.7); Neutrophils % (A) 59 %; Platelet Count 630 k/uL (150-450); RBC 3.77 m/uL (4.30-5.90); RDW 13.9 % (11.5-15.5); WBC 4.6 k/uL (3.8-10.6)
[2024-07-19 14:17] LABS: Influenza A Not Detected (Not Detectd); Influenza B Not Detected (Not Detectd); RSV Not Detected (Not Detectd)
[2024-07-19 14:37] LABS: Partial Thromboplastin Time 26.9 sec (22.0-30.0); Prothrombin Time 11.5 sec (10.0-12.5)
[2024-07-19] MEDS: IPRATROPIUM-ALBUTEROL 3 ML NEB INHALATION STA (16:05)
[2024-07-19 16:15] LABS: ALT 31 U/L (4-49); AST 19 U/L (17-59); African American GFR (CKD) >90 (>60 ml/min/1.73 sqM); Albumin 3.6 g/dL (3.5-5.0); Alkaline Phosphatase 74 U/L (38-126); Anion Gap 9 mmol/L; Blood Urea Nitrogen 16 mg/dL (9-20); Calcium 9.4 mg/dL (8.4-10.2); Carbon Dioxide 26 mmol/L (22-30); Chloride 103 mmol/L (98-107); Glucose 108 mg/dL (74-99); Magnesium 2.4 mg/dL (1.6-2.3); Non-African American GFR(CKD) 87 (>60 ml/min/1.73 sqM); Potassium 4.8 mmol/L (3.5-5.1); Sodium 138 mmol/L (137-145); Total Protein 6.9 g/dL (6.3-8.2)
[2024-07-19] MEDS: AZITHROMYCIN 500 MG in SODIUM CHLORIDE 0.9% 250 ML IVPB STA (16:47)
[2024-07-19] MEDS: cefTRIAXone IN SWFI 1,000 MG/10 ML SYRINGE IVP STA (18:12)
[2024-07-19 18:41] VITALS: BP 114/73; PULSE 90; TEMP 98.1
== END 2024-07-19 18:41 | disposition home or self-care (01) ==
LOC: EC 12:20
DX: J18.1 Lobar pneumonia, unspecified organism (principal); Z87.891 Personal history of nicotine dependence; Z88.8 Allergy status to other drugs, medicaments and biological substances
CPT/HCPCS: 36415; 93005; 83880; 80053; 83735; 84484; 85025; 85610; 85730; 87636; 71046; 99285; 96365; 96375; J0456; J0696

== ENCOUNTER 2024-08-07 10:36 | Emergency (ER) | payer OTHER, MEDICARE ==
[2024-08-07 10:48] VITALS: RESP 18
[2024-08-07 11:31] LABS: Basophils % (A) 0 %; Eosinophils % (A) 1 %; HCT 41.2 % (39.0-53.0); HGB 13.5 gm/dL (13.0-17.5); Lymphocytes # (A) 1.3 k/uL (1.0-4.8); Lymphocytes % (A) 34 %; MCH 36.1 pg (25.0-35.0); MCHC 32.8 g/dL (31.0-37.0); MCV 110.1 fL (80.0-100.0); Macrocytosis Marked; Mean Platelet Volume 7.2; Monocytes # (A) 0.3 k/uL (0-1.0); Monocytes % (A) 7 %; Neutrophils # (A) 2.1 k/uL (1.3-7.7); Neutrophils % (A) 55 %; RBC 3.74 m/uL (4.30-5.90); RDW 14.2 % (11.5-15.5); WBC 3.9 k/uL (3.8-10.6)
[2024-08-07 11:32] LABS: Platelet Count 200 k/uL (150-450)
[2024-08-07 11:37] LABS: Partial Thromboplastin Time 24.7 sec (22.0-30.0); Prothrombin Time 10.7 sec (10.0-12.5)
[2024-08-07 11:40] LABS: Carbon Dioxide 21 mmol/L (22-30); Chloride 106 mmol/L (98-107); Glucose 127 mg/dL (74-99); Potassium 4.3 mmol/L (3.5-5.1); Sodium 137 mmol/L (137-145)
[2024-08-07 11:41] LABS: ALT 11 U/L (4-49); AST 16 U/L (17-59); African American GFR (CKD) >90 (>60 ml/min/1.73 sqM); Alkaline Phosphatase 59 U/L (38-126); Anion Gap 10 mmol/L; Blood Urea Nitrogen 15 mg/dL (9-20); Calcium 9.2 mg/dL (8.4-10.2); Non-African American GFR(CKD) >90 (>60 ml/min/1.73 sqM); Total Bilirubin 0.8 mg/dL (0.2-1.3); Total Protein 6.9 g/dL (6.3-8.2)
--- NOTE | 2024-08-07 11:44 | ED ---
Chest Pain HPI - General Chief Complaint: Chest Pain Stated Complaint: chest pain,dizzy Time Seen by Provider: 08/07/24 10:40 Source: patient, RN notes reviewed Mode of arrival: ambulatory Limitations: no limitations - History of Present Illness Initial Comments: 79-year-old male presents emergency department complaint of chest pain. Patient states that he was sick approximately 3 weeks ago. Patient states that he was feeling better but developed his chest pain and dizzy spells. Patient states he feels lightheaded but also room spins at times. 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 - Related Data Home Medications Medication Instructions Recorded Confirmed Aspirin 325 mg PO DAILY 04/19/21 04/19/21 Cholecalciferol [Vitamin D3 (10 10 mcg PO DAILY 04/19/21 04/19/21 Mcg = 400 Iu)] Previous Rx's Medication Instructions Recorded Albuterol Sulfate [Albuterol 1 puff PO Q4-6H PRN #8.5 gm 07/19/24 Sulfate Hfa] Amoxic-Pot Clav 875-125Mg 1 tab PO Q12HR 7 Days #14 tab 07/19/24 [Augmentin 875-125] Azithromycin [Zithromax] 250 mg PO DAILY 4 Days #4 tab 07/19/24 Levofloxacin [Levaquin] 500 mg PO DAILY #10 tab 08/07/24 Allergies Allergy/AdvReac Type Severity Reaction Status Date / Time doxycycline Allergy Dyspnea Verified 08/07/24 10:48 valacyclovir [From Valtrex] Allergy Confusion Verified 08/07/24 10:48 Review of Systems ROS Statement: Those systems with pertinent positive or pertinent negative responses have been documented in the HPI. ROS Other: All systems not noted in ROS Statement are negative. EKG Findings - EKG Comments: EKG Findings:: EKG performed at 11: 11 sinus rhythm with a rate of 84 [place] 151 QRS 122 QT/QTc 353/395 right bundle noted - EKG Results: EKG: interpreted by [facility] Past Medical History Past Medical History: Cancer, Hyperlipidemia, Pneumonia Additional Past Medical History / Comment(s): skin cancer, states too many red blood cells. History of Any Multi-Drug Resistant Organisms: None Reported Past Surgical History: No Surgical Hx Reported Additional Past Surgical History / Comment(s): COLONOSCOPY Past Anesthesia/Blood Transfusion Reactions: No Reported Reaction Past Psychological History: No Psychological Hx Reported Smoking Status: Former smoker Past Alcohol Use History: Occasional Past Drug Use History: None Reported - Past Family History Mother Family Medical History: Cancer Additional Family Medical History / Comment(s): BRAIN CANCER Brother(s) Family Medical History: Cancer Additional Family Medical History / Comment(s): COLON CANCER Sister(s) Family Medical History: Cancer Additional Family Medical History / Comment(s): LIVER CANCER General Exam Limitations: no limitations General appearance: alert, in no apparent distress Head exam: Present: atraumatic, normocephalic, normal inspection Eye exam: Present: normal appearance, PERRL, EOMI. Absent: scleral icterus, conjunctival injection, periorbital swelling ENT exam: Present: normal exam, normal oropharynx, mucous membranes moist Neck exam: Present: normal inspection, full ROM. Absent: tenderness, meningismus, lymphadenopathy Respiratory exam: Present: normal lung sounds bilaterally. Absent: respiratory distress, wheezes, rales, rhonchi, stridor Cardiovascular Exam: Present: regular rate, normal rhythm, normal heart sounds. Absent: systolic murmur, diastolic murmur, rubs, gallop, clicks GI/Abdominal exam: Present: soft, normal bowel sounds. Absent: distended, tenderness, guarding, rebound, rigid Course Vital Signs 08/07/24 08/07/24 08/07/24 10:44 11:08 11:12 Temperature 97.5 F L Pulse Rate 98 85 Pulse Rate [ 78 Right Prone Radial] Respiratory 18 18 Rate Blood Pressure 142/78 137/84 O2 Sat by Pulse 97 95 Oximetry 08/07/24 12:47 Temperature 97.7 F Pulse Rate 98 Pulse Rate [ Right Prone Radial] Respiratory 18 Rate Blood Pressure 139/82 O2 Sat by Pulse 96 Oximetry Chest Pain MDM - MDM Was pt. sent in by a medical professional or institution (, PA, SOLAR SYSTEM INSTALLER, urgent care, hospital, or [place] health care facility...) When possible be specific @ -No Did you speak to anyone other than the patient for history (EMS, parent, family, police, friend...)? What history was obtained from this source @ -No Did you review nursing and triage notes (agree or disagree)? Why? @ -I reviewed and agree with nursing and triage notes Were old charts reviewed (outside hosp., previous admission, EMS record, old EKG, old radiological studies, urgent care reports/EKG's, [place] [facility] facility records)? Report findings @ -No old charts were reviewed Differential Diagnosis (chest pain, altered mental status, abdominal pain women, abdominal pain men, vaginal bleeding, weakness, fever, dyspnea, syncope, headache, dizziness, GI bleed, back pain, seizure, CVA, palpatations, mental health, musculoskeletal)? @ -Rib contusion rib fracture EKG interpreted by me (3pts min.). @ -None X-rays interpreted by me (1pt min.). @ -X-ray left side of ribs with PA chest shows minimally displaced eighth ninth rib fracture CT interpreted by me (1pt min.). @ -None done U/S interpreted by me (1pt. min.). @ -None done What testing was considered but not performed or refused? (CT, X-rays, U/S, labs)? Why? @ -None What meds were considered but not given or refused? Why? @ -None Did you discuss the management of the patient with other professionals (professionals i.e. , PA, SOLAR SYSTEM INSTALLER, lab, RT, psych nurse, web content & social media manager, weatherstrip machine operator, teacher, training and development officer, welfare case worker)? Give summary @ -No Was smoking cessation discussed for >3mins.? @ -No Was critical care preformed (if so, how long)? @ -No Were there social determinants of health that impacted care today? How? (Homelessness, low income, unemployed, alcoholism, drug addiction, transportation, low edu. Level, literacy, decrease access to med. care, [facility], rehab)? @ -No Was there de-escalation of care discussed even if they declined (Discuss DNR or withdrawal of care, Hospice)? DNR status @ -No What co-morbidities impacted this encounter? (DM, HTN, Smoking, COPD, CAD, Cancer, CVA, ARF, Chemo, Hep., AIDS, mental health diagnosis, sleep apnea, morbid obesity)? @ -None Was patient admitted / discharged? Hospital course, mention meds given and route, prescriptions, significant lab abnormalities, going to OR and other pertinent info. @ -Discharge patient has a rib fracture pneumothorax he has no abdominal pain. Patient was given incentive spirometer he will continue [id number] analgesics and return parameters issa. Undiagnosed new problem with uncertain prognosis? @ -No Drug Therapy requiring intensive monitoring for toxicity (Heparin, Nitro, Insulin, Cardizem)? @ -No Were any procedures done? @ -No Diagnosis/symptom? @ -Rib fracture Acute, or Chronic, or Acute on Chronic? @ -acute Uncomplicated (without systemic symptoms) or Complicated (systemic symptoms)? @ -Complicated Side effects of treatment? @ -No Exacerbation, Progression, or Severe Exacerbation? @ -No Poses a threat to life or bodily function? How? (Chest pain, [place], [place], pneumonia, PE, COPD, DKA, ARF, appy, cholecystitis, CVA, Diverticulitis, Homicidal, Suicidal, threat to staff... and all critical care pts) @ -No Disposition Clinical Impression: Pneumonia Disposition: HOME SELF-CARE Condition: Stable Instructions (If sedation given, give patient instructions): Pneumonia (ED) Additional Instructions: Please return to the Emergency Department if symptoms worsen or any other concerns. Prescriptions: Levofloxacin [Levaquin] 500 mg PO DAILY #10 tab Is patient prescribed a controlled substance at d/c from ED?: No Referrals: Akshat Denson DO [Primary Care Provider] - 1-2 days Time of Disposition: 12:20
[2024-08-07 11:47] LABS: NT-Pro-B-Type Natriuretic Pept 96 pg/mL
--- NOTE | 2024-08-07 12:00 | XR ---
Chest, 2 view. CLINICAL INDICATION: Male, 79 years old with history of Chest Pain COMPARISON: TECHNIQUE: PA and lateral views the chest are obtained. FINDINGS: There is persistent partially interstitial and partially consolidated opacity in the right lung base suspicious for pneumonia. The left lung is clear. There is no pleural effusion or pneumothorax. The heart and pulmonary vasculature are normal. The osseous structures are intact. IMPRESSION: Persistent interstitial and alveolar infiltrate in the right lung base suspicious for an infectious p rocess. Continued follow-up is recommended. [facility], , 08/07/2024 11:58 AM
[2024-08-07] MEDS: cefTRIAXone IN SWFI 1,000 MG/10 ML SYRINGE IVP STA (12:44)
[2024-08-07 12:49] VITALS: BP 139/82; PULSE 98; TEMP 97.7
== END 2024-08-07 12:52 | disposition home or self-care (01) ==
LOC: EC 10:36
DX: J18.9 Pneumonia, unspecified organism (principal); Z87.891 Personal history of nicotine dependence
CPT/HCPCS: 36415; 93005; 85379; 83880; 80053; 83735; 84484; 85025; 85610; 85730; 71046; 99285; 96374; J0696